=== PATIENT | female | born 1975 | race Caucasian/White ===

== ENCOUNTER 2017-01-08 13:50 | Emergency (ER) | payer OTHER ==
[~2017-01-08] VITALS: Ht 165.1 cm; Wt 80.9 kg
[2017-01-08] MEDS ORDERED: SERT50TA12 PO (14:01)
[2017-01-08 14:19] VITALS: BP 110/70
[2017-01-08] MEDS ORDERED: PERTUSS(ACELL),DIPH,TET VAC/PF 0.5 ML VIAL IM ONE (14:45)
[2017-01-08] MEDS ORDERED: IBUPROFEN 800 MG TABLET PO ONE (14:45)
== END 2017-01-08 15:38 | disposition home or self-care (01) ==
LOC: EMS 13:53
DX: S41.131A Puncture wound without foreign body of right upper arm, initial encounter (principal); W45.8XXA Other foreign body or object entering through skin, initial encounter; Y93.89 Activity, other specified; Y92.096 Garden or yard of other non-institutional residence as the place of occurrence of the external cause; Y99.8 Other external cause status
CPT/HCPCS: 90471; 90715; 99283; 99284

== ENCOUNTER 2021-09-30 19:05 | Emergency (ER) | payer OTHER ==
[~2021-09-30] VITALS: Ht 162.6 cm; Wt 65.5 kg
[~2021-09-30 19:05] MED LIST: SERT-158 PO
[2021-09-30 22:04] VITALS: BP 112/71
== END 2021-09-30 22:06 | disposition home or self-care (01) ==
LOC: EMS 19:05
DX: M25.532 Pain in left wrist (principal); F41.9 Anxiety disorder, unspecified
CPT/HCPCS: 99283